=== PATIENT | male | born 1940 | race Two or more races ===

== ENCOUNTER 2022-08-06 11:54 | Emergency (ER) | payer SELFPAY ==
[~2022-08-06] VITALS: Ht 185.4 cm; Wt 100.0 kg
[2022-08-06 14:26] LABS: BASOPHILS % 0.2 % (0.0-2.0); EOSINOPHILS % 0.2 % (0.0-5.0); HEMATOCRIT. 34.6 % (42.0-52.0); HEMOGLOBIN. 11.4 g/dL (14.0-18.0); LYMPHOCYTES % 8.6 % (20.0-50.0); MEAN CORPUSCULAR HEMOGLOBIN 31.8 pg (28.0-32.0); MEAN CORPUSCULAR VOLUME 96.1 fL (80.0-94.0); MEAN PLATELET VOLUME 8.9 fl (7.4-10.4); MONOCYTES % 5.3 % (2.0-8.0); NEUTROPHILS % 85.7 % (40.0-76.0); PLATELET 166 x1000/uL (130-400); RED CELL DISTRIBUTION WIDTH 14.6 % (11.6-14.6)
[2022-08-06 14:30] VITALS: BP 125/52
[2022-08-06 14:33] LABS: CHLORIDE 104 mEq/L (98-107)
[2022-08-06] MEDS ORDERED: BENZ200C52 MT (15:44)
[2022-08-06] MEDS ORDERED: FURO-152 MT (15:45)
== END 2022-08-06 16:34 | disposition home or self-care (01) ==
LOC: ER 11:54
DX: R07.89 Other chest pain (principal); I50.9 Heart failure, unspecified; E11.9 Type 2 diabetes mellitus without complications
CPT/HCPCS: 36415; 71045; 80053; 83880; 84484; 85025; 93005; 99285

== ENCOUNTER 2024-09-19 16:43 | Emergency (ER) | payer OTHER ==
[~2024-09-19] VITALS: Ht 175.3 cm; Wt 80.0 kg
[~2024-09-19 16:43] MED LIST: BENZ200C52 MT; FURO-152 MT
[2024-09-19 16:44] VITALS: O2SAT 96
[2024-09-19 18:06] LABS: BASOPHILS % 0.4 % (0.0-2.0); EOSINOPHILS % 0.4 % (0.0-5.0); HEMATOCRIT. 33.2 % (42.0-52.0); HEMOGLOBIN. 11.1 g/dL (14.0-18.0); LYMPHOCYTES % 7.9 % (20.0-50.0); MEAN CORPUSCULAR HEMOGLOBIN 31.6 pg (28.0-32.0); MEAN CORPUSCULAR HGB CONC 33.5 g/dL (31.0-37.0); MEAN CORPUSCULAR VOLUME 94.4 fL (80.0-94.0); MEAN PLATELET VOLUME 7.8 fl (7.4-10.4); MONOCYTES % 7.2 % (2.0-8.0); NEUTROPHILS % 84.1 % (40.0-76.0); PLATELET 221 x1000/uL (130-400); RED BLOOD CELL COUNT 3.52 mill/uL (4.7-6.1); RED CELL DISTRIBUTION WIDTH 12.9 % (11.6-14.6); WHITE BLOOD COUNT 7.8 x1000/uL (4.5-11.0)
[2024-09-19 18:15] LABS: CHLORIDE 107 mEq/L (98-107); POTASSIUM 4.1 mEq/L (3.5-5.1); SODIUM 145 mEq/L (136-145)
[2024-09-19 18:16] LABS: CALCIUM 9.2 mg/dL (8.7-10.4); CARBON DIOXIDE 30 mEq/L (21-32)
[2024-09-19 18:21] LABS: CREATININE 1.4 mg/dL (0.6-1.3); GLUCOSE 246 mg/dL (70-105); UREA NITROGEN BLOOD 29 mg/dL (9-23)
[2024-09-19 18:24] LABS: TROPONIN I HIGH SENSITIVITY 14 ng/L (3.0-53)
[2024-09-19 21:59] LABS: TROPONIN I HIGH SENSITIVITY 16 ng/L (3.0-53)
[2024-09-20] MEDS: PIPERACILLIN/TAZO 3.375G/100ML 100 ML IV SCH (01:02)
[2024-09-20] MEDS: HYDRALAZINE 20MG/ML VIAL IV ONE (01:38)
[2024-09-20 02:05] VITALS: BP 191/61; PULSE 74; RESP 17; TEMP 37.50300; O2SAT 97
== END 2024-09-20 02:26 | disposition short-term general hospital (02) ==
LOC: ER 16:43 → EDBEDREQ 19:10 → ER 09-20 02:26
DX: I70.262 Atherosclerosis of native arteries of extremities with gangrene, left leg (principal); R55 Syncope and collapse; E11.52 Type 2 diabetes mellitus with diabetic peripheral angiopathy with gangrene; E11.65 Type 2 diabetes mellitus with hyperglycemia; I11.0 Hypertensive heart disease with heart failure; I50.9 Heart failure, unspecified; E78.00 Pure hypercholesterolemia, unspecified; D64.9 Anemia, unspecified; Z79.899 Other long term (current) drug therapy
CPT/HCPCS: 99285; 71045; 80048; 83880; 85025; 84484; 36415; 73630; 93005; 96374; 96375; J2543; J0360; A4606